=== PATIENT | male | born 1990 | race Caucasian/White ===

== ENCOUNTER 2024-02-23 03:09 | Emergency (ER) | payer SELFPAY ==
[~2024-02-23] VITALS: Ht 190.5 cm; Wt 82.0 kg
[2024-02-23 03:18] VITALS: BP 118/84; PULSE 73; RESP 18; TEMP 98.8; O2SAT 100
[2024-02-23] MEDS: QUETIAPINE FUMARATE 50MG TABLET PO SCH (03:45)
[2024-02-23] MEDS ORDERED: QUET200T30 MT (03:57)
[2024-02-23] MEDS: CLONAZEPAM 0.5MG TABLET PO ONE (04:13)
== END 2024-02-23 04:32 | disposition home or self-care (01) ==
LOC: ER 03:27
DX: R68.89 Other general symptoms and signs (principal); F41.9 Anxiety disorder, unspecified; Z76.0 Encounter for issue of repeat prescription; Z79.899 Other long term (current) drug therapy
CPT/HCPCS: 99283

== ENCOUNTER 2024-03-21 17:20 | Emergency (ER) | payer SELFPAY ==
[~2024-03-21] VITALS: Ht 190.5 cm; Wt 82.0 kg
[~2024-03-21 17:20] MED LIST: QUET200T30 MT
[2024-03-21 17:24] VITALS: BP 121/80; RESP 16; TEMP 98.3; O2SAT 98
[2024-03-21 18:29] VITALS: PULSE 80; O2SAT 100
== END 2024-03-21 18:11 | disposition left against medical advice (07) ==
LOC: ER 17:20
DX: F41.9 Anxiety disorder, unspecified (principal); Z76.0 Encounter for issue of repeat prescription; Z79.899 Other long term (current) drug therapy
CPT/HCPCS: 99281